=== PATIENT | male | born 1975 | race Hispanic/Latino ===

== ENCOUNTER 2017-11-10 09:54 | Emergency (ER) | payer OTHER ==
[2017-11-10 11:03] VITALS: BP 149/90
[2017-11-10] MEDS ORDERED: ULTRAM PO ONE (12:49)
--- NOTE | 2017-11-10 12:53 | Emergency Department Report ---
Abscess Boil HPI - HPI Chief Complaint: Skin/Abscess/Foreign Body Stated Complaint: ABSCESS BACK OF NECK Time Seen by Provider: 11/10/17 12:41 Duration: 4 Days Location: Neck Severity: Severe History: Yes Previous History (groin), No Fever, No Pain, No Purulent Drainage, No Numbness, No Foreign Body, No Insect Bite HPI: Doses a 42-year-old male that presents with an abscess to neck for 3-4 days. Patient admits to past medical history of diabetes2. Patient states he has had several abscesses in the past but usually to the groin area. Patient reports pain is 10 out of 10 on pain scale and constant. There is some redness and swelling to left side of neck around abscess. Patient states he went to [facility] urgent care yesterday and placed on antibiotics which he has not feels this time. She denies drainage, fever, chest pain, numbness or tingling. Home Medications: Previous Rx's Medication Instructions Recorded Last Taken Type HYDROcodone/APAP 5-325 [[place] 1 each PO Q8HR PRN #20 tablet 05/11/13 Unknown Rx 5/325 mg] Insulin Aspart Protam & Aspart 20 unit SQ BID #1 box 05/11/13 Unknown Rx [NovoLOG Mix 70-30 Flexpen] Sulfamethoxazole/Trimethoprim 1 each PO BID #20 tablet 05/11/13 Unknown Rx [Bactrim Ds] HYDROcodone/APAP 5-325 [[place] 1 each PO Q6HR PRN #12 tablet 11/10/17 Unknown Rx 5/325] Naproxen [Naprosyn] 500 mg PO BID #15 tablet 11/10/17 Unknown Rx Sulfamethoxazole/Trimethoprim 1 each PO BID #20 tablet 11/10/17 Unknown Rx [Bactrim DS TAB] Allergies/Adverse Reactions: Allergies Allergy/AdvReac Type Severity Reaction Status Date / Time latex Allergy Itching Verified 05/11/13 00:22 ED Review of Systems ROS: Stated complaint: ABSCESS BACK OF NECK Other details as noted in HPI Constitutional: denies: chills, fever Respiratory: denies: cough, shortness of breath, wheezing Cardiovascular: denies: chest pain, palpitations Gastrointestinal: denies: abdominal pain, nausea, vomiting, diarrhea Musculoskeletal: denies: back pain, joint swelling, arthralgia Skin: lesions (abscess left neck). denies: rash Neurological: denies: headache, weakness, paresthesias ED Past Medical Hx - Past Medical History Previous Medical History?: Yes Hx Diabetes: Yes Additional medical history: Staph Infection (Abscess x 2) - Surgical History Past Surgical History?: Yes Additional Surgical History: Surgery to drain abscess/gangrene - Social History Smoking Status: Current Every Day Smoker Substance Use Type: Alcohol - Medications Home Medications: Home Medications Medication Instructions Recorded Confirmed Last Taken Type HYDROcodone/APAP 5-325 [[place] 1 each PO Q8HR PRN #20 tablet 05/11/13 Unknown Rx 5/325 mg] Insulin Aspart Protam & Aspart 20 unit SQ BID #1 box 05/11/13 Unknown Rx [NovoLOG Mix 70-30 Flexpen] Sulfamethoxazole/Trimethoprim 1 each PO BID #20 tablet 05/11/13 Unknown Rx [Bactrim Ds] HYDROcodone/APAP 5-325 [[place] 1 each PO Q6HR PRN #12 tablet 11/10/17 Unknown Rx 5/325] Naproxen [Naprosyn] 500 mg PO BID #15 tablet 11/10/17 Unknown Rx Sulfamethoxazole/Trimethoprim 1 each PO BID #20 tablet 11/10/17 Unknown Rx [Bactrim DS TAB] ED Abscess Boil Physical Exam - Exam General: Vital signs noted. No distress. Alert and acting appropriately. Front/Back of Body, Lg (Color): 1 - 5 cm erythematous nodule to left side of neck spreading intothe region, tenderness Size: 5 cm Exam: Yes Tenderness, Yes Fluctuance, Yes Normal Neurologic Exam, Yes Normal Circulation, No Surrounding Cellulites/Erythema, No Lymphangitis, No Crepitation , No Heart Murmur I & D Note - I & D Note I & D Note: The area was prepared and draped in the usual, sterile manner. The site was anesthetized with 2% lidocaine without epinephrine. A linear incision along the local skin lines was made and the purulent material expressed. The abcess was explored thoroughly and sequestered pockets were opened. Bleeding was minimal. Packing: idodoform. Followup: The patient tolerated the procedure well without complications. Standard post-procedure care was explained and return precautions are given. ED Course Vital Signs 11/10/17 10:57 Temperature 98.9 F Pulse Rate 117 H Respiratory 18 Rate Blood Pressure 149/90 O2 Sat by Pulse 97 Oximetry - Reevaluation(s) Reevaluation #1: HR 98 Critical care attestation.: If time is entered above; I have spent that time in minutes in the direct care of this critically ill patient, excluding procedure time. ED Medical Decision Making - Medical Decision Making This is a 42 y.o. male that presents with a painful abscess to posterior neck left side. Patient has history of prior abscess to groin and DM2. Patient is stable and examined by me. Physical assessment of 5 cm fluctuance nodule to left posterior neck. No acute signs of distress noted. Given tramadol 50 mg po once in ER. I&D refer to note. Discussed plan to start bactrim DS, naproxen, and norco with patient. Educated patient on follow up plan to have packing removed and wound reassessed in 2-3 days. Patient agrees to ED plan of care. Discharged home and follow up with PCP in 2-3 days. ED Disposition Clinical Impression: Abscess of skin of neck Disposition: DC- TO HOME OR SELFCARE Is pt being admited?: No Does the pt Need Aspirin: No Condition: Stable Instructions: Abscess Incision and Drainage (ED), Abscess (ED) Additional Instructions: Keep packing in place for 2-3 days. Return to ER or f/u with PCP to have packing removed and wound reassessed. Complete full round of bactrim DS antibiotic as prescribed. Follow up with PCP or ER in 2-3 days. Return to ER if foul smelling discharge, swelling, or severe pain to wound. Prescriptions: HYDROcodone/APAP 5-325 [[place] 5/325] 1 each PO Q6HR PRN #12 tablet PRN Reason: Pain Naproxen [Naprosyn] 500 mg PO BID #15 tablet Sulfamethoxazole/Trimethoprim [Bactrim DS TAB] 1 each PO BID #20 tablet Referrals: [facility] [Outside] - 3-5 Days [facility] [place] [Outside] - 3-5 Days [facility] [Outside] - 3-5 Days [facility] [Provider Group] - 3-5 Days Time of Disposition: 14:55 Print Language: CROATIAN
[2017-11-10] MEDS ORDERED: XYLOCAINE 2% INFILTRATI ONE (12:55)
== END 2017-11-10 16:45 | disposition home or self-care (01) ==
LOC: ED 09:54
DX: L02.11 Cutaneous abscess of neck (principal); E11.9 Type 2 diabetes mellitus without complications; F17.200 Nicotine dependence, unspecified, uncomplicated; Z79.4 Long term (current) use of insulin; Z91.040 Latex allergy status; Z79.899 Other long term (current) drug therapy
CPT/HCPCS: 82962; 99283